=== PATIENT | male | born 1955 | race Caucasian/White ===

== ENCOUNTER 2020-01-15 17:28 | Emergency (ER) | payer MEDICARE, OTHER ==
[~2020-01-15] VITALS: Ht 180.3 cm; Wt 81.4 kg
[2020-01-15] MEDS ORDERED: SODIUM CHLORIDE 0.9% 1,000 ML IV ONE (17:34)
[2020-01-15] MEDS ORDERED: LORazepam 2 MG/ML, 1ML IVPush ONE (18:00)
[2020-01-15] MEDS ORDERED: PLEASE ENTER ALLERGIES MC SCH (18:00)
[2020-01-15] MEDS ORDERED: SODIUM CHLORIDE FLUSH 10ML SYR IVF ONE (18:00)
[2020-01-15] MEDS ORDERED: SODIUM CHLORIDE 0.9% 1,000ML IVBOLUS ONE (18:00)
[2020-01-15] MEDS ORDERED: LORazepam 2 MG/ML, 1ML ONE (18:13)
[2020-01-15 18:15] LABS: BASOPHILS # (AUTO) 0.05 x10^3/uL (0-0.1); BASOPHILS % (AUTO) 1 % (0-1); EOSINOPHILS # (AUTO) 0.49 x10^3/uL (0-0.4); EOSINOPHILS % (AUTO) 6 % (1-7); LYMPHOCYTES # (AUTO) 2.97 x10^3/uL (1-3.4); LYMPHOCYTES % (AUTO) 34 % (22-44); MD NO; MEAN CORPUSCULAR HEMOGLOBIN 31.6 pg (27.5-34.5); MEAN CORPUSCULAR HGB CONC 33.4 g/dL (33.2-36.2); MEAN CORPUSCULAR VOLUME 94.5 fL (81-97); MEAN PLATELET VOLUME 9.2 fL (7.4-10.4); MONOCYTES # (AUTO) 0.64 x10^3/uL (0.2-0.8); MONOCYTES % (AUTO) 7 % (2-9); NEUTROPHILS # (AUTO) 4.59 x10^3/uL (1.8-6.8); NEUTROPHILS % (AUTO) 53 % (42-75); PLATELET COUNT 161 x10^3/uL (130-400); RED BLOOD COUNT 4.42 x10^6/uL (4.38-5.82); RED CELL DISTRIBUTION WIDTH 12.1 % (9.4-14.8)
[2020-01-15 18:24] LABS: ALBUMIN 3.7 g/dL (3.4-5.0); ANION GAP 6 mmol/L (5-15); CALCIUM 8.3 mg/dL (8.5-10.1); CHLORIDE 109 mmol/L (98-107)
[2020-01-15 18:28] LABS: TROPONIN I 0.017 ng/mL (0.000-0.045)
--- NOTE | 2020-01-15 18:38 | NUR ---
PT RTD FROM CT, IVF INFUSING W/O DIFFICULTY. PT MED WITH ATIVAN NOTED. CALL LIGHT W/I REACH
--- NOTE | 2020-01-15 19:02 | NUR ---
BS REPORT RECEIVED FROM CAROLE DOMINGUEZ. PT RESTING ON GURNEY, FLUIDS RUNNING, CALL LIGHT WITHIN REACH, MONITORING IN PLACE, VSS, FAMILY AT BS FOR SUPPORT. LIGHTS DIMMED FOR PT COMFORT.
[2020-01-15 19:34] VITALS: BP 127/80
[2020-01-15 19:37] LABS: MICROSCOPIC NOT IND
[2020-01-15 19:40] LABS: CULTURE INDICATED? NO
== END 2020-01-15 20:24 | disposition home or self-care (01) ==
LOC: ED 19:40
DX: R42 Dizziness and giddiness (principal); R53.1 Weakness
CPT/HCPCS: 36415; 70450; 80048; 81003; 82040; 84484; 85025; 93005; 96361; 96374; 99285; J2060; J7030